=== PATIENT | male | born 1990 | race Caucasian/White ===

== ENCOUNTER 2024-05-18 10:44 | Day surgery (SDC) | payer OTHER, SELFPAY ==
[2024-05-12 15:54] VITALS: BMI 34.9
[2024-05-18] VITALS (8 sets, daily range): BP systolic 110–156; BP diastolic 70–106; PULSE 82–99; RESP 15–21; TEMP 36.1–36.9; O2SAT 93–98; BMI 35.9
--- NOTE | 2024-05-18 | PATH_ITS ---
[facility] Accession Number: [id number] No. of containers..01 Tissue . 01 Material submitted: . peritoneum - LEFT PERITONEAL NODULE . 01 Diagnosis: LEFT PERITONEAL NODULE, BIOPSY: Fibroadipose tissue with nodular fat necrosis, dystrophic calcifications, and scattered hemosiderin-laden macrophages. Negative for malignancy. MRV 05/21/2024 1538 Local . 01 Comment: Multiple deeper levels have been examined. . As part of ongoing quality rep, this case is also reviewed by Dr. Loren Samuels, who agrees with the interpretation. . 01 Electronically signed: . Jazzmine Adams MD, Pathologist NPI- [id number] . 01 Gross description: . Received in formalin with two patient identifiers and left peritoneal nodule, is a yellow to cleary soft tissue fragment, 0.9 x 0.7 x 0.4 cm. Inked blue and bisected to reveal a well-circumscribed cleary nodule, 0.5 x 0.4 x 0.3 cm. The specimen is submitted entirely in A1. ([id number]) /MRV 05/19/2024 1901 Local . 01 Pathologist provided ICD-10: K40.90 . 01 CPT . 099478 Specimen Comment: A courtesy copy of this report has been sent to [phone] Performed at: [address] [id number] MD Gustavo Feldman MD Phone: [phone]
[2024-05-18] MEDS: LACTATED RINGERS 1,000 ML 42 ML IV (11:27)
--- NOTE | 2024-05-18 12:09 | SUR.OPER ---
Addendum entered by Doyle Yoo R.N. 05/18/24 12:11: [place] Pad Positioner under torso Original Note: Supine on padded (PINK PAD) OR bed, head on pillow, arms padded (PURPLE PADS) and tucked at sides, legs uncrossed, safety belt at thigh, tape over blanket over lower legs .
--- NOTE | 2024-05-18 12:25 | PM.PREOP ---
Pre-operative Note COVID-19 COVID-19 status: Not tested Interval Note History & Physical reviewed/Exam performed by Physician: Yes Changes to H&P: No ASA Class (for procedural sedation): II
[2024-05-18] MEDS: CEFAZOLIN VIAL 2 GM in SODIUM CHLORIDE 0.9% 100 ML IV (12:46)
[2024-05-18] MEDS: BUPIVACAINE 0.5% (PF) 30 ML, EPINEPHrine 0.15 MG INJ (12:54)
--- NOTE | 2024-05-18 14:37 | PM.OP.1 ---
Operative Date/Time/Diagnoses Date of procedure: 05/18/24 Time of procedure: 14:37 Pre-op diagnosis: Left inguinal hernia Post-op diagnosis: other (Bilateral inguinal hernia and umbilical incisional hernia) Procedure & Clinicians Procedure: Laparoscopic bilateral inguinal hernia repair with mesh Umbilical hernia repair Same procedure as scheduled: No Surgeon: Hugh Hare Assistant Producer: Mega Lang Anesthesia Type: General Operative Notes Procedure in detail: The patient was given preoperative antibiotics. The patient was brought to the operating room, placed on the table in the supine position with the arms tucked and general anesthesia was induced. The abdomen was prepped and draped in the usual fashion. A time-out was performed. There appeared to be umbilical hernia and there was an infraumbilical surgical scar suggesting was an incisional hernia. We made a 4 cm curvilinear infraumbilical incision through the old scar and dissected out the hernia from the surrounding subcutaneous adipose tissue. We opened the hernia sac and amputated some omental fat. The fascial defect was only about 5 mm and we would increase the defect in the inferior direction. The Heydi port was placed and the abdomen was insufflated to 15 mmHg. The camera was inserted, there was no evidence of any injury from the entry. 5 mm ports were placed under direct vision in the mid left and mid right abdomen. The patient was positioned in steep Trendelenburg. We started on the left side. There appeared to be a small nodule on the peritoneum in the left groin. It appeared to be about 6 mm. It was resected off the peritoneum using hot scissors and sent as a specimen. We then created a left peritoneal flap. It was felt that the hernia was most likely a sliding indirect type. The peritoneum was dissected off the left cord structures. A large left Bard mesh was brought in and placed over the defect with the medial edge against Yaron's ligament. We then closed the peritoneal flap with a running 3-0 barbed suture. There also appeared to be a right hernia with some fat bulging at direct space. The peritoneum was dissected off right structures. A large right Bard mesh was brought in and placed over the defect with the medial edge against Yaron's ligament and in contact with the medial edge of the left mesh. We then closed the peritoneal flap with a running 3-0 barbed suture. We took one last look around the abdomen and saw no other abnormalities. The suture was removed and accounted for. The 5 mm ports were removed under direct vision. The abdomen was desufflated. The Heydi port was removed. Additional local was injected into the fascia and the umbilical fascial incision was closed with 2 interrupted 0 Vicryl sutures. The skin incisions were closed with 4 Monocryl, Steri-Strips and Band-Aids. EBL: 10 mL Specimen: Left myopectineal peritoneal nodule Mega OROZCO provided assistance with exposure, retraction and closure of incisions. Post-operative Condition: stable Disposition: PACU
[2024-05-18] MEDS: ONDANSETRON 4 MG/2 ML INJ IV (15:09)
[2024-05-18] MEDS: ACETAMINOPHEN 325 MG TABLET 975 MG PO (15:09)
[2024-05-18] MEDS: OXYCODONE IR 5 MG TABLET PO ×2 (15:09→15:38)
== END 2024-05-18 15:59 | disposition home or self-care (01) ==
PROVIDERS: PCP Family Medicine; Referring Provider Surgery; Visit Provider Surgery
PROC: 0YQ64ZZ Repair Left Inguinal Region, Percutaneous Endoscopic Approach (ICD-10-PCS; CPT 49650; principal; 2024-05-18 12:45)
DX: K40.20 Bilateral inguinal hernia, without obstruction or gangrene, not specified as recurrent (principal); K42.9 Umbilical hernia without obstruction or gangrene
CPT/HCPCS: 49650; J0171; J0690; J1100; J1170; J1885; J2250; J2405; J2704; J3010; J3490

== ENCOUNTER → 2024-06-23 13:30 | Outpatient (CLI) | payer OTHER, SELFPAY ==
--- NOTE | 2024-06-23 13:31 | DI.US.S_ITS ---
PROCEDURE: US SCROTUM INDICATIONS: LEFT TESTICULAR PAIN TECHNIQUE: Real-time scanning was performed of the scrotum and testicles, with image documentation. Color and pulse Doppler interrogation was performed of both testicles. COMPARISON: None. FINDINGS: Right: Testicle is normal in size at 0.4 x 3.1 x 2.4 cm, and homogenous in echotexture. Epididymis is normal in overall size and morphology. No hydrocele or varicoceles. Overlying scrotal skin is normal in thickness. Left: Testicle is normal in size at 4.6 x 3.2 x 2.2 cm, and homogeneous in echotexture. Incidental 1 mm testicular cyst. Epididymis is normal in overall size and morphology. Incidental epididymal head cyst measuring 3 mm. No hydrocele or varicoceles. Overlying scrotal skin is normal in thickness. No sonographic abnormality in the area of clinical concern. Doppler: Color and pulse Doppler demonstrate normal and symmetric arterial flow in both testicles. Query partially reducible fat containing left inguinal hernia. Recommend correlation with physical exam. If clinically appropriate, further evaluation with targeted inguinal ultrasound can be performed for further evaluation. IMPRESSION: No sonographic evidence of testicular torsion. No sonographic abnormality in the area of clinical palpable concern left testicle. Approved by: Yaa Hoyt M.D.,Ph.D. on 06/24/2024 at 0:28
== END ==
PROVIDERS: PCP Family Medicine; Referring Provider Family Medicine; Visit Provider Family Medicine
DX: N50.812 Left testicular pain (principal)
CPT/HCPCS: 76870; 93975

== ENCOUNTER → 2024-07-12 11:25 | Outpatient (CLI) | payer OTHER, SELFPAY ==
--- NOTE | 2024-07-12 11:26 | DI.MRI.S_ITS ---
PROCEDURE: MR PELIS WO/W CON INDICATIONS: LEFT TESTICULAR PAIN,PALPABLE MASS TECHNIQUE: Coronal HASTE, sagittal T2 FSE, axial T1 FSE, axial and coronal nonbreath-hold T2 FSE. Axial dynamic VIBE during administration of contrast. Post-contrast axial and coronal VIBE/2-D FLASH with fat saturation from the iliac crests to the symphysis. Optional diffusion weighted imaging and ADC may be performed. COMPARISON: [facility], , SCROTUM, 06/23/2024, 13:44. FINDINGS: Image quality: Excellent. Bowel and peritoneum: No pathologic free pelvic fluid. Inferior colon and small bowel loops are normal in caliber. Genitourinary system: Bladder wall is normal in thickness. Distal ureters are non distended. Nodes and vessels: No pathologic pelvic or inguinal adenopathy by size criteria. Iliac vessels are normal in caliber. Soft tissues: Small left inguinal hernia containing fat. Bones: Marrow is normal in overall signal. IMPRESSION: Small left inguinal hernia containing fat. Dictated by: Ashvin Matthews M.D. on 07/12/2024 at 17:24 Approved by: Ashvin Matthews M.D. on 07/12/2024 at 17:25
== END ==
PROVIDERS: PCP Family Medicine; Referring Provider Family Medicine; Visit Provider Family Medicine
DX: N50.812 Left testicular pain (principal); K40.91 Unilateral inguinal hernia, without obstruction or gangrene, recurrent
CPT/HCPCS: 72197; A9579